=== PATIENT | female | born 1970 | race Hispanic/Latino ===

== ENCOUNTER 2017-08-21 11:45 | Observation (INO) | payer BC ==
[~2017-08-21] VITALS: Ht 162.6 cm; Wt 63.6 kg
[~2017-08-21 11:45] MED LIST: GABAPENTIN; HYDROCODONE; LEVOTHYROXINE; MOTRIN200 MG PO
[2017-08-21] MEDS ORDERED: ONDANSETRON HCL INJ 2 MG/ML VIAL IV STA (14:34)
[2017-08-21] MEDS ORDERED: HYDROMORPHONE 1MG/1ML INJ IV STA (14:34)
[2017-08-21 14:38] LABS: BILIRUBIN,URINE NEGATIVE (NEGATIVE); KETONES,URINE NEGATIVE (NEGATIVE); LEUKOCYTE ESTERASE ,URINE 1+ (NEGATIVE); NITRITE,URINE NEGATIVE (NEGATIVE); PROTEIN,URINE DIPSTICK NEGATIVE (NEGATIVE); URINE UROBILINOGEN 0.2 mg/dL (0.2 - 1)
[2017-08-21 14:41] LABS: CLARITY,URINE CLEAR (CLEAR); COLOR,URINE YELLOW (YELLOW)
[2017-08-21 14:42] LABS: PREGNANCY TEST, URINE NEGATIVE (NEGATIVE)
[2017-08-21] MEDS ORDERED: DIATRIZOATE MEGL/DIATRIZOA SOD 30 ML BTL PO ONE (14:48)
[2017-08-21 14:50] LABS: BASOPHILS % 0.4 % (0.0-1.0); EOSINOPHILS % 0.3 % (0.0-6.0); HEMATOCRIT 44.1 % (34.2-44.1); HEMOGLOBIN 14.8 g/dL (12.0-16.0); LYMPHOCYTES # (AUTO) 1.7 (1.0-3.2); LYMPHOCYTES % 24.7 % (18.0-39.1); MEAN CORPUSCULAR HEMOGLOBIN 34.3 pg (28-32); MEAN CORPUSCULAR HGB CONC 33.6 g/dL (31-35); MEAN CORPUSCULAR VOLUME 102.3 fL (81-99); MONOCYTES # (AUTO) 0.4 (0.2-0.8); MONOCYTES % 6.3 % (4.4-11.3); NEUTROPHILS # (AUTO) 4.7 (2.1-6.9); PLATELET COUNT 176 x10e3/uL (140-360); RED BLOOD COUNT 4.31 x10e6/uL (3.6-5.1); RED CELL DISTRIBUTION WIDTH 11.7 % (11.7-14.4)
[2017-08-21 14:55] LABS: EPITHELIAL CELLS,URINE FEW /LPF; WBC,URINE (MAN) 0-5 /HPF (0-5)
[2017-08-21 15:11] LABS: ALANINE AMINOTRANSFERASE 70 IU/L (0-55); ALBUMIN 4.5 g/dL (3.5-5.0); ALBUMIN/GLOBULIN RATIO 1.2 (0.8-2.0); ALKALINE PHOSPHATASE 55 IU/L (40-150); ANION GAP 12.2 mmol/L (8-16); BLOOD UREA NITROGEN 10 mg/dL (7-26); BUN/CREATININE RATIO 14 (6-25); CALCIUM 9.9 mg/dL (8.4-10.2); CARBON DIOXIDE 24 mmol/L (22-29); CHLORIDE 106 mmol/L (98-107); CREATININE, SERUM 0.72 mg/dL (0.57-1.11); EST GLOMERULAR FILTRATION RATE > 60 ML/MIN (60-); GLUCOSE 91 mg/dL (74-118); POTASSIUM 4.2 mmol/L (3.5-5.1); SODIUM 138 mmol/L (136-145)
[2017-08-21] MEDS ORDERED: IOPAMIDOL 370 MG/ML 200 ML INFUS..BTL INJ ONE (16:49)
[2017-08-21] MEDS ORDERED: SODIUM CHLORIDE 0.9% 50ML 50 ML ONE (16:49)
--- NOTE | 2017-08-21 17:04 | Diagnostic Imaging Report ---
PROCEDURE: CT ABDOMEN AND PELVIS WITH CONTRAST TECHNIQUE: The abdomen and pelvis were scanned utilizing a multidetector helical scanner from the diaphragm to the lesser trochanter after the IV administration of 100 cc of Isovue 370 and the oral administration of dilute Gastrografin. Coronal and sagittal multiplanar reformations were obtained. COMPARISON: [facility], CT, CT ABDOMEN AND PELVIS WITH CONTRAST, 03/22/2010, 15:51. INDICATIONS: RIGHT UPPER QUAD PAIN FINDINGS: LOWER THORAX: Stable 3-4 mm pulmonary nodules in the lateral right lower lobe since 2009. Lung bases are otherwise clear. HEPATOBILIARY: No focal hepatic lesions. No biliary ductal dilatation. Gallbladder is unremarkable. SPLEEN: No splenomegaly. PANCREAS: No focal masses or ductal dilatation. ADRENALS: No adrenal nodules. KIDNEYS/URETERS: No hydronephrosis, stones, or solid mass lesions. PELVIC ORGANS/BLADDER: The bladder is unremarkable. Uterus is unremarkable. No adnexal masses. PERITONEUM / RETROPERITONEUM: No free air or fluid. LYMPH NODES: No lymphadenopathy. VESSELS: Unremarkable. GI TRACT: No bowel dilation or evidence of obstruction. BONES AND SOFT TISSUES: No acute bony abnormalities. Stable grade 1 anterolisthesis of L4 on L5 secondary to bilateral pars interarticularis defects. The soft tissues are unremarkable. IMPRESSION: 1. no acute abdominopelvic abnormalities. Specifically, no acute abnormality in the right upper quadrant to explain the patient's pain. Demetrio Lancaster M.D. Dictated by: Demetrio Lancaster M.D. on 08/21/2017 at 17:13 Electronically approved by: Demetrio Lancaster M.D. on 08/21/2017 at 17:13
[2017-08-21] MEDS ORDERED: ONDANSETRON HCL INJ 2 MG/ML VIAL IV ONE (18:15)
[2017-08-21] MEDS ORDERED: HYDROMORPHONE 1MG/1ML INJ IV ONE (18:15)
[2017-08-21 19:14] LABS: AMPHETAMINES SCREEN,URINE POSITIVE (NEGATIVE); BENZODIAZEPINES SCREEN,URINE POSITIVE (NEGATIVE)
[2017-08-21 19:15] LABS: CANNABINOIDS SCREEN,URINE NEGATIVE (NEGATIVE); PHENCYCLIDINE SCREEN,URINE NEGATIVE (NEGATIVE)
[2017-08-21 19:21] LABS: LIPASE 14 U/L (8-78)
[2017-08-21] MEDS ORDERED: METHOCARBAMOL750 MG PO (20:28)
[2017-08-21] MEDS ORDERED: D AMPHETAMINE PO (20:29)
[2017-08-21] MEDS: SODIUM CHLORIDE 0.9% 1000ML 1,000 ML IV SCH (20:35)
[2017-08-21 22:42] VITALS: BP 124/58
[2017-08-21] MEDS: HYDROMORPHONE 1MG/1ML INJ IV PRN (23:10)
[2017-08-21 23:35] VITALS: BP 124/58
[2017-08-22] MEDS ORDERED: PANTOPRAZOLE 40 MG 10ML VIAL IV STA (04:52)
[2017-08-22 04:59] VITALS: BP 116/61
[2017-08-22] MEDS ORDERED: PANTOPRAZOL 40MG/SOD CHL 0.9% 250 ML IV SCH (05:00)
[2017-08-22] MEDS: SODIUM CHLORIDE 0.9% 1000ML 1,000 ML IV SCH ×4 (05:22→23:39)
[2017-08-22] MEDS: PANTOPRAZOL 40MG/SOD CHL 0.9% 50 ML IV SCH ×5 (06:20→22:24)
--- NOTE | 2017-08-22 07:38 | History and Physical ---
C[age]-old female comes with abdominal pain. HISTORY OF PRESENTING ILLNESS: This is . 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 She also noted some rectal bleeding while going to the bathroom. Patient's abdominal pain got out of control yesterday and came in. She was due to have colonoscopy and endoscopy scheduled by Dr. Isma Adams, but with the pain, the patient was sent to the emergency room, was admitted for the same. MEDICATIONS: She takes at home are ibuprofen for back pain, methocarbamol, gabapentin, hydrocodone, and also Adderall which she takes for ADHD. PAST MEDICAL HISTORY: Includes IBS, history of back pain, history of hypothyroidism and also history of ADHD, hepatitis C and patient did get treatment about 20 years ago for the same. SURGICAL HISTORY: History of hysterectomy, history of , history of . FAMILY HISTORY: History of thyroid cancer, history of lung cancer in father and also colon cancer in father. SOCIAL HISTORY: No ETOH. No IV drug abuse either. REVIEW OF SYSTEMS: Negative for chest pain. Positive for abdominal pain, gastric in nature, very sharp. No nausea or vomiting. No constipation. Positive for rectal pain. Positive for hematemesis. No diplopia. No blurry vision. PHYSICAL EXAMINATION: GENERAL: Patient is alert and oriented x3, very nervous, apprehensive. HEENT: Normocephalic, atraumatic. Pupils are reactive to light and accommodation. CVS: S1 and S2 normal. Regular rate and rhythm. ABDOMEN: Tender in the epigastric area. No clubbing and no cyanosis and no edema noted either. LAB VALUES: Initial was white count of 6.96, MCV of 1021.3, MCH of 34.3, otherwise everything was normal. Chemistry, elevated AST and ALT. Total protein was 8.2. Toxicology positive for acetaminophen, positive for benzo, and positive for opiates. MICROBIOLOGY: Urine culture is pending. ASSESSMENT: 1. Upper abdominal pain. Patient has been taking a lot of nonsteroidal antiinflammatory drugs, probably nonsteroidal antiinflammatory drug induced gastritis. 2. History of bright rectal bleed per rectum. Will need a colonoscopy. Will go ahead and schedule that with Dr. Adams as an outpatient basis. 3. Tenderness in the thoracic spine and the lumbar spine, could elicit radiculopathy. Magnetic resonance imaging of the lumbar spine and thoracic spine has been ordered. For right now, will keep the patient on proton pump inhibitors, and Dr. Isma Adams is going to go ahead and proceed with an esophagogastroduodenoscopy. For hepatitis C, hepatitis C workup will be done as an outpatient. For attention deficit hyperactivity disorder, will continue on her medications, and also for pain, will withhold her hydrocodone, will start her on the Dilaudid, which she is getting. The patient can go home after an endoscopy. The additional history that she has is according to her, the patient has lost about 80 pounds of weight in the last 1 year. We will go ahead and look at the magnetic resonance imaging of the thoracic spine, but look into the abdomen to see if there is any pathology in the abdominal area. Further recommendations on clinical course. Will continue to monitor the patient along with Dr. Adams. Job#: [id number]
[2017-08-22 07:57] VITALS: BP 106/54
[2017-08-22] MEDS: ONDANSETRON HCL INJ 2 MG/ML VIAL IV PRN ×3 (08:55→20:35)
[2017-08-22] MEDS: HYDROMORPHONE 1MG/1ML INJ IV PRN ×3 (08:55→20:35)
[2017-08-22 12:00] VITALS: BP 120/62
[2017-08-22 15:43] VITALS: BP 110/53
[2017-08-22] MEDS ORDERED: D AMPHETAMINE PO SCH (17:00)
[2017-08-22] MEDS ORDERED: LIDOCAINE HCL 2% LOCAL INJ 5 ML SDV VIAL INJ ONE (18:34)
[2017-08-22] MEDS ORDERED: PROPOFOL IV EMULSION 10 MG/ML 50 ML VIAL ONE (18:34)
[2017-08-22] MEDS ORDERED: FENTANYL CITRATE/PF 100MCG/2 ML INJ ONE (19:04)
[2017-08-22] MEDS ORDERED: MIDAZOLAM HCL 2 MG/2 ML VIAL ONE (19:04)
[2017-08-22 19:20] VITALS: BP 113/70
--- NOTE | 2017-08-22 19:36 | Operative Report ---
DATE OF PROCEDURE: August 22, 2017 REFERRING PHYSICIAN: Dr. Sudeep Herrera. PROCEDURE PERFORMED: Esophagogastroduodenoscopy with biopsies. INDICATIONS FOR ESOPHAGOGASTRODUODENOSCOPY: Upper abdominal pain and history of melena. MEDICATION: Patient was done under MAC. Please see anesthesiologist's note. PROCEDURE: With patient in the left lateral decubitus position, flexible fiberoptic Olympus gastroscope was introduced into the esophagus under direct visualization without any difficulty. There was some patchy erythema noted in distal esophagus. The scope was then advanced with ease into the stomach and mucosa overlying the antrum and the body revealed some diffuse erythema and low-grade to moderate edema and biopsies were obtained and sent to stain for H. pylori. The pylorus was of normal contour and shape. Was intubated with ease and the scope was advanced all the way to the 2nd portion of the duodenum. The scope was then withdrawn slowly. Mucosa overlying the proximal 2nd portion and the duodenal bulb appeared to be within normal limits. The scope was then withdrawn back into the stomach and retroflexed. Mucosa overlying the fundus and the cardia appeared to be within normal limits. The scope was then straightened out. The stomach was decompressed. Scope was subsequently withdrawn. Patient tolerated the procedure well. IMPRESSION: 1. Distal esophagitis. 2. Gastritis, biopsied. Biopsy sent to stain for H. pylori. PLAN: Follow up histology. Continue PPI therapy. The above findings do not necessarily explain the patient's pain. Will proceed with HIDA scan with ejection fraction. Job#: [id number] GH cc:SUDEEP HERRERA MD
[2017-08-22 19:45] VITALS: BP 113/70
[2017-08-23] VITALS (7 sets, daily range): BP systolic 103–129; BP diastolic 51–60
[2017-08-23] MEDS: ONDANSETRON HCL INJ 2 MG/ML VIAL IV PRN ×3 (00:52→21:17)
[2017-08-23] MEDS: HYDROMORPHONE 1MG/1ML INJ IV PRN ×4 (00:52→21:17)
[2017-08-23] MEDS: PANTOPRAZOL 40MG/SOD CHL 0.9% 50 ML IV SCH ×5 (03:16→21:17)
[2017-08-23] MEDS: HOME MEDICATION--PATIENTS OWN PO SCH ×2 (04:49→13:16)
[2017-08-23] MEDS: SODIUM CHLORIDE 0.9% 1000ML 1,000 ML IV SCH ×2 (08:25→17:02)
[2017-08-23] MEDS ORDERED: MORPHINE SULFATE 2 MG/ML SYR IV ONE (11:00)
--- NOTE | 2017-08-23 11:33 | Diagnostic Imaging Report ---
Hepatobiliary Scan with Gallbladder Ejection Fraction Clinical information: Abdominal pain Report: Following intravenous administration of 6 millicuries of Tc-99m mebrofenin, dynamic images of the abdomen in the anterior projection were obtained through 60 minutes. Sincalide (CCK analog) 1.5 micrograms was administered intravenously over 30 minutes with additional imaging for determination of gallbladder ejection fraction. Perfusion to the liver is normal. Extraction of tracer from the blood pool by the liver parenchyma is normal. Tracer is seen promptly within the biliary tract. The gallbladder begins to fill by 52 minutes post-injection of tracer and fills adequately. Tracer is seen in the small bowel by 12 minutes. The gallbladder ejection fraction with administration of sincalide is 65% (normal greater than 40%). Impression: 1. Filling of the gallbladder excludes the diagnosis of acute cystic duct obstruction/acute cholecystitis. 2. Normal gallbladder ejection fraction of 65% does not support the clinical diagnosis of chronic cholecystitis/gallbladder dyskinesia. Signed by: Dr. Jeniffer Taylor M.D. on 08/23/2017 11:29 AM
[2017-08-23] MEDS: DIPHENHYDRAMINE HCL 25 MG CAP PO PRN (21:36)
[2017-08-24] VITALS: BP 102/54
[2017-08-24] MEDS: SODIUM CHLORIDE 0.9% 1000ML 1,000 ML IV SCH ×3 (02:37→22:04)
[2017-08-24] MEDS: HYDROMORPHONE 1MG/1ML INJ IV PRN ×2 (02:37→08:02)
[2017-08-24] MEDS: PANTOPRAZOL 40MG/SOD CHL 0.9% 50 ML IV SCH ×4 (02:37→18:16)
[2017-08-24] MEDS: ONDANSETRON HCL INJ 2 MG/ML VIAL IV PRN ×4 (03:30→18:26)
[2017-08-24] MEDS: POLYETHYLENE GLYCOL 3350 17 GM PACK PO SCH (03:30)
[2017-08-24 04:00] VITALS: BP 106/57
[2017-08-24] MEDS: HOME MEDICATION--PATIENTS OWN PO SCH (06:00)
[2017-08-24 08:21] VITALS: BP 120/56
[2017-08-24] MEDS ORDERED: POLYETHYLENE GLYCOL 3350 17 GM PACK PO SCH (09:00)
[2017-08-24 12:00] VITALS: BP 127/69
[2017-08-24] MEDS: HYDROMORPHONE 2MG/ML INJ IV PRN ×2 (12:15→18:26)
[2017-08-24 16:32] VITALS: BP 131/65
[2017-08-24 20:00] VITALS: BP 107/54
[2017-08-24] MEDS: DIPHENHYDRAMINE HCL 25 MG CAP PO PRN (21:19)
[2017-08-25] VITALS: BP 117/58
[2017-08-25] MEDS: PANTOPRAZOL 40MG/SOD CHL 0.9% 50 ML IV SCH ×3 (00:40→08:36)
[2017-08-25] MEDS: SODIUM CHLORIDE 0.9% 1000ML 1,000 ML IV SCH ×2 (02:44→10:48)
[2017-08-25 04:00] VITALS: BP 117/58
[2017-08-25] MEDS: HOME MEDICATION--PATIENTS OWN PO SCH (06:00)
[2017-08-25 08:15] VITALS: BP 113/51
[2017-08-25] MEDS: POLYETHYLENE GLYCOL 3350 17 GM PACK PO SCH (08:36)
[2017-08-25] MEDS: HYDROMORPHONE 2MG/ML INJ IV PRN (10:47)
[2017-08-25] MEDS: ONDANSETRON HCL INJ 2 MG/ML VIAL IV PRN (10:47)
[2017-08-25 12:15] VITALS: BP 129/82
== END 2017-08-25 13:46 | disposition home or self-care (01) ==
LOC: ER 11:45 → ERHOLD 19:13 → MED/SURG 21:21
PROVIDERS: ADMIT Family Medicine; ATTEND Family Medicine
DX: R10.13 Epigastric pain (principal); F90.9 Attention-deficit hyperactivity disorder, unspecified type; B19.20 Unspecified viral hepatitis C without hepatic coma; M54.5 Low back pain; K21.0 Gastro-esophageal reflux disease with esophagitis; K29.50 Unspecified chronic gastritis without bleeding
CPT/HCPCS: 36415; 43239; 74177; 78227; 80053; 80307; 80320; 81001; 81025; 83690; 85025; 87086; 88305; 88312; 99284; A9537; G0378 ×5; J1170 ×6; J2001; J2250; J2270; J2405 ×5; J7030 ×4; Q9967

== ENCOUNTER 2018-08-06 20:28 | Emergency (ER) | payer BC ==
[~2018-08-06] VITALS: Ht 162.6 cm; Wt 63.5 kg
[~2018-08-06 20:28] MED LIST changes: +D AMPHETAMINE PO; +METHOCARBAMOL750 MG PO
--- OUTSIDE RECORDS SUMMARY | 2018-08-06 20:31 | XMS REPORT ---
Author Author [facility] Address Unknown Phone Unavailable Care Team Providers Care Asset Protection Agent Name Role Phone Ella CARBAJAL Unavailable Unavailable Problems This patient has no known problems. Allergies, Adverse Reactions, Alerts This patient has no known allergies or adverse reactions. Medications This patient has no known medications. Results Test Description Test Time Test Comments Text Results Atomic Results Result Comments HEPTOBILIARY W PHARM [place] [address] Patient Name: DALTON RICHARDSON MR #: [id number] : 1970 Age/Sex: 46/F Req #: [id number] Adm Physician: SHANNON CARBAJAL MD Ordered by: PENG SANTOS MD Report #: [id number] Location: MED/SURG Room/Bed: [facility] Procedure: [id number] NM/HEPTOBILIARY W PHARM Exam Date: 08/23/17 Exam Time: 0930 REPORT STATUS: Signed Hepatobiliary Scan with Gallbladder Ejection Fraction Clinical information: Abdominal pain Report: Following intravenous administration of 6 millicuries of Tc-99m mebrofenin, dynamic images of the abdomen in the anterior projection were obtained through 60 minutes. Sincalide (CCK analog) 1.5 micrograms was administered intravenously over 30 minutes with additional imaging for determination of gallbladder ejection fraction. Perfusion to the liver is normal. Extraction of tracer from the blood pool by the liver parenchyma is normal. Tracer is seen promptly within the biliary tract. The gallbladder begins to fill by 52 minutes post-injection of tracer and fills adequately. Tracer is seen in the small bowel by 12 minutes. The gallbladder ejection fraction with administration of sincalide is 65% (normal greater than 40%). Impression: 1. Filling of the gallbladder excludes the diagnosis of acute cystic duct obstruction/acute cholecystitis. 2. Normal gallbladder ejection fraction of 65% does not support the clinical diagnosis of chronic cholecystitis/gallbladder dyskinesia. Signed by: Dr. Chapincito Taylor M.D. on 08/23/2017 11:29 AM Dictated By: CHAPINCITO TAYLOR MD 112 Transcribed By: KARON on 08/23/17 112 COPY TO: PENG SANTOS MD CT ABDOMEN/PELVIS W [place] [address] Patient Name: DALTON RICHARDSON MR #: [id number] : 1970 Age/Sex: 46/F Req #: [id number] Adm Physician: Ordered by: MEKA YANES MD Report #: [id number] Location: ER Room/Bed: Procedure: [id number] CT/CT ABDOMEN/PELVIS W Exam Date: 08/21/17 Exam Time: 1530 REPORT STATUS: Signed PROCEDURE: CT ABDOMEN AND PELVIS WITH CONTRAST TECHNIQUE: The abdomen and pelvis were scanned utilizing a multidetector helical scanner from the diaphragm to the lesser trochanter after the IV administration of 100 cc of Isovue 370 and the oral administration of dilute Gastrografin. Coronal and sagittal multiplanar reformations were obtained. COMPARISON: [facility], CT, CT ABDOMEN AND PELVIS WITH CONTRAST, 03/22/2010, 15:51. INDICATIONS: RIGHT UPPER QUAD PAIN FINDINGS: LOWER THORAX: Stable 3-4 mm pulmonary nodules in the lateral right lower lobe since 2009. Lung bases are otherwise clear. HEPATOBILIARY: No focal hepatic lesions. No biliary ductal dilatation. Gallbladder is unremarkable. SPLEEN: No splenomegaly. PANCREAS: No focal masses or ductal dilatation. ADRENALS: No adrenal nodules. KIDNEYS/URETERS: No hydronephrosis, stones, or solid mass lesions. PELVIC ORGANS/BLADDER: The bladder is unremarkable. Uterus is unremarkable. No adnexal masses. PERITONEUM / RETROPERITONEUM: No free air or fluid. LYMPH NODES: No lymphadenopathy. VESSELS: Unremarkable. GI TRACT: No bowel dilation or evidence of obstruction. BONES AND SOFT TISSUES: No acute bony abnormalities. Stable grade 1 anterolisthesis of L4 on L5 secondary to bilateral pars interarticularis defects. The soft tissues are unremarkable. IMPRESSION: 1. no acute abdominopelvic abnormalities. Specifically, no acute abnormality in the right upper quadrant to explain the patient's pain. Angela Lancaster M.D. Dictated by: Ly Lancaster M.D. on 08/21/2017 at 17:13 Electronically approved by: Ly Lancaster M.D. on 08/21/2017 at 17:13 Dictated By: LY LANCASTER MD 12 Transcribed By: SIVAKUMAR on 08/21/171712 COPY TO: MEKA YANES MD
[2018-08-06] MEDS ORDERED: KETOROLAC TROMETHAMINE 30 MG/ML VIAL IM STA (21:19)
== END 2018-08-06 21:34 | disposition home or self-care (01) ==
LOC: FSED 20:28
DX: G43.109 Migraine with aura, not intractable, without status migrainosus (principal); F31.9 Bipolar disorder, unspecified; R01.1 Cardiac murmur, unspecified
CPT/HCPCS: 99282; J1885

== ENCOUNTER 2019-06-06 15:55 | Emergency (ER) | payer BC ==
[~2019-06-06] VITALS: Ht 162.6 cm; Wt 72.6 kg
[2019-06-06] MEDS ORDERED: KETOROLAC TROMETHAMINE 30 MG/ML VIAL IM STA (16:17)
[2019-06-06] MEDS ORDERED: ONDANSETRON HCL 4 MG ORAL DISINTEGRATING TAB PO STA (16:21)
[2019-06-06] MEDS ORDERED: KETOROLAC TROMETHAMINE 30 MG/ML VIAL ONE (16:31)
[2019-06-06] MEDS ORDERED: ONDANSETRON HCL 4 MG ORAL DISINTEGRATING TAB ONE (16:31)
== END 2019-06-06 16:40 | disposition home or self-care (01) ==
LOC: FSED 15:55
DX: G43.719 Chronic migraine without aura, intractable, without status migrainosus (principal); F31.9 Bipolar disorder, unspecified
CPT/HCPCS: 99283; J1885; Q0162

== ENCOUNTER 2019-07-10 17:52 | Emergency (ER) | payer BC ==
[~2019-07-10] VITALS: Ht 162.6 cm; Wt 70.8 kg
[2019-07-10] MEDS ORDERED: SODIUM CHLORIDE 0.9% 1000ML 1,000 ML ONE (18:10)
[2019-07-10] MEDS ORDERED: METOCLOPRAMIDE HCL 10 MG/2ML VIAL ONE (18:11)
[2019-07-10] MEDS ORDERED: KETOROLAC TROMETHAMINE 30 MG/ML VIAL ONE (18:11)
[2019-07-10] MEDS ORDERED: DIPHENHYDRAMINE HCL INJ 50 MG/ML VIAL ONE (18:11)
[2019-07-10] MEDS ORDERED: ONDANSETRON HCL INJ 2MG/ML 2ML 2 MG/ML VIAL ONE (18:11)
[2019-07-10] MEDS ORDERED: ONDANSETRON HCL INJ 2MG/ML 2ML 2 MG/ML VIAL IV STA (18:27)
[2019-07-10] MEDS ORDERED: KETOROLAC TROMETHAMINE 30 MG/ML VIAL IV STA (18:27)
[2019-07-10] MEDS ORDERED: METOCLOPRAMIDE HCL 10 MG/2ML VIAL IV ONE (18:30)
[2019-07-10] MEDS ORDERED: DIPHENHYDRAMINE HCL INJ 50 MG/ML VIAL IV ONE (18:30)
[2019-07-10] MEDS ORDERED: SODIUM CHLORIDE 0.9% 1000ML 1,000 ML IV SCH (18:30)
[2019-07-10 19:18] VITALS: BP 127/88
--- NOTE | 2019-07-10 19:24 | NUR ---
PT STATES SHE FEELS A LITTLE BETTER, INSTRUCTONS GIVEN FOR HOME CARE. IV DCD NO BLEEDING, SWELLING OR REDNESS NOTED.
== END 2019-07-10 19:26 | disposition home or self-care (01) ==
LOC: FSED 17:52
DX: G43.019 Migraine without aura, intractable, without status migrainosus (principal)
CPT/HCPCS: 99283; J1200; J1885; J2405; J2765; J7030

== ENCOUNTER → 2019-08-17 | Outpatient (CLI) | payer BC ==
--- NOTE | 2019-09-02 10:01 | Diagnostic Imaging Report ---
#[id number] - MGSCRBIL #BILATERAL DIGITAL SCREENING MAMMOGRAM WITH CAD: 08/17/2019 CLINICAL: Routine screening. Comparison is made to exams dated: 09/04/2016 mammogram, 09/04/2016 ultrasound, 02/05/2013 ultrasound and 02/05/2013 mammogram - [facility]. The tissue of both breasts is heterogeneously dense. This may lower the sensitivity of mammography. Current study was also evaluated with a Computer Aided Detection (CAD) system. There are benign calcifications in both breasts. There also are benign lymph nodes in both breasts. No significant masses, calcifications, or other findings are seen in either breast. There has been no significant interval change. IMPRESSION: BENIGN There is no mammographic evidence of malignancy. A 1 year screening mammogram is recommended. The patient will be notified by letter of the results. RENALDO morgan/estelita:08/31/2019 15:27:21 Maintenance And Operations Supervisor: Jeniffer BLACKWELL(Becky)(Román), [facility] letter sent: Compared to Prior B9 Mammogram BI-RADS: 2 Benign
== END ==
LOC: MAMMO 10:48
PROVIDERS: ATTEND Family Medicine
DX: Z12.31 Encounter for screening mammogram for malignant neoplasm of breast (principal)
CPT/HCPCS: 77067

== ENCOUNTER → 2020-08-22 | Outpatient (CLI) | payer MEDICARE | LOC: MAMMO 10:55 | PROVIDERS: ATTEND Family Medicine | DX: Z12.31 Encounter for screening mammogram for malignant neoplasm of breast (principal) | CPT/HCPCS: 77067 ==

== ENCOUNTER → 2021-01-26 | Outpatient (CLI) | payer MEDICARE | LOC: DX 10:38 | PROVIDERS: ATTEND Family Medicine | DX: R13.10 Dysphagia, unspecified (principal); Z20.822 Contact with and (suspected) exposure to COVID-19 | CPT/HCPCS: 74230; 92526; 92611; U0002 ==

== ENCOUNTER → 2021-09-28 | Outpatient (CLI) | payer MEDICARE | LOC: MAMMO 12:42 | PROVIDERS: ATTEND Family Medicine | DX: Z12.31 Encounter for screening mammogram for malignant neoplasm of breast (principal) | CPT/HCPCS: 77067 ==

== ENCOUNTER → 2025-03-02 | Outpatient (REF) | payer MEDICARE ==
[~2025-03-02] MED LIST changes: +ADDERALL 20 MG20 MG PO; +AMBIEN10 MG PO; +CLEOCIN HCL300 MG PO; +HAIR, SKIN & N1 EACH PO; +LEVOTHYROXINE50 MCG PO; +MULTI-VITAMIN1 EACH PO; +NAPROSYN500 MG PO; +OZEMPIC0.25 MG/02; +PAXIL40 MG PO; +SEROQUEL100 MG PO; +VITB12 PO
== END ==
LOC: MAMMO 14:02
PROVIDERS: ATTEND Family Medicine
DX: N63.20 Unspecified lump in the left breast, unspecified quadrant (principal); Z13.820 Encounter for screening for osteoporosis
CPT/HCPCS: 77066; 77080